=== PATIENT | male | born 2000 | race Hispanic/Latino ===

== ENCOUNTER 2020-01-22 16:13 | Emergency (ER) | payer SELFPAY ==
[2020-01-22] MEDS ORDERED: MORPHINE 4 MG/1 ML INJ IV ONE (16:38)
[2020-01-22] MEDS ORDERED: ONDANSETRON 4 MG/2 ML INJ IV ONE (16:38)
[2020-01-22] MEDS ORDERED: SODIUM CHLORIDE 0.9% 1000 ML 1,000 ML IV ONE (16:38)
--- NOTE | 2020-01-22 16:43 | Emergency Department Report ---
ED Upper Extremity Inj HPI - General Chief Complaint: Extremity Injury, Upper Stated Complaint: STEEL FELL ON HAND Time Seen by Provider: 01/22/20 16:37 Source: patient Mode of arrival: Ambulatory Limitations: No Limitations - History of Present Illness Initial Comments: Patient is 20 years old male with no significant past medical history. Patient presented to the ER complaining of left forearm, wrist and hand injury. 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 Patient stated that he is unable to move his hand since then. Bleeding controlled. Patient denied any other injuries. MD Complaint: Injury to:: left, forearm, wrist, hand -: Sudden Other Extremity Injury: Hand: Left, Wrist: Left, Forearm: Left Other Injuries: none Place: work Improves With: cold therapy Worsens With: movement of extremity Context: direct blow - Related Data Home Medications Medication Instructions Recorded Confirmed Last Taken No Known Home Medications [No 01/22/20 01/22/20 Unknown Reported Home Medications] Allergies Allergy/AdvReac Type Severity Reaction Status Date / Time Penicillins Allergy Unknown Verified 01/22/20 16:38 ED Review of Systems ROS: Stated complaint: STEEL FELL ON HAND Other details as noted in HPI Comment: All other systems reviewed and negative Constitutional: denies: chills, fever Respiratory: denies: cough, shortness of breath, SOB with exertion, wheezing Cardiovascular: denies: chest pain, palpitations Gastrointestinal: denies: abdominal pain Musculoskeletal: denies: back pain Neurological: denies: headache, weakness, numbness, paresthesias, confusion ED Past Medical Hx - Past Medical History Previous Medical History?: Yes Additional medical history: breaks, knee, jaw - Surgical History Past Surgical History?: No - Social History Smoking Status: Current Every Day Smoker - Medications Home Medications: Home Medications Medication Instructions Recorded Confirmed Last Taken Type No Known Home Medications [No 01/22/20 01/22/20 Unknown History Reported Home Medications] ED Physical Exam - General Limitations: No Limitations General appearance: alert, in distress (Moderate distress secondary to pain) - Head Head exam: Present: atraumatic, normocephalic, normal inspection - Eye Eye exam: Present: normal appearance, PERRL - ENT ENT exam: Present: normal exam, normal orophraynx, mucous membranes moist - Neck Neck exam: Present: normal inspection, full ROM. Absent: tenderness, meningismus, lymphadenopathy, thyromegaly - Respiratory Respiratory exam: Present: normal lung sounds bilaterally - Cardiovascular Cardiovascular Exam: Present: regular rate, normal rhythm, normal heart sounds - GI/Abdominal GI/Abdominal exam: Present: soft, normal bowel sounds. Absent: distended, tenderness, guarding, rebound, rigid, organomegaly, mass, bruit, pulsatile mass, hernia - Expanded Upper Extremity Exam Left General: Present: normal inspection. Absent: laceration, abrasion Shoulder Exam: Present: normal inspection, full ROM. Absent: tenderness, swelling, abrasion, laceration, ecchymosis Upper Arm exam: Present: normal inspection, full ROM. Absent: tenderness, swelling Elbow exam: Present: normal inspection, full ROM. Absent: tenderness, swelling, abrasion, laceration, ecchymosis, deformity Forearm Wrist exam: Present: tenderness, swelling, abrasion, ecchymosis. Absent: laceration Hand Wrist exam: Present: tenderness, swelling, abrasion, laceration (5 cm laceration to the dorsum of the left hand) - Neurological Exam Neurological exam: Present: alert, oriented X3, CN II-XII intact, normal gait - Psychiatric Psychiatric exam: Present: anxious - Skin Skin exam: Present: warm ED Course Vital Signs 01/22/20 01/22/20 16:37 16:40 Temperature 97.5 F L Respiratory 16 Rate ED Medical Decision Making - Lab Data Result diagrams: 01/22/20 16:59 - Radiology Data Radiology results: report reviewed - Medical Decision Making Patient is 20 years old male with no significant past medical history. Patient presented to the ER complaining of left forearm, wrist and hand injury. 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 Patient stated that he is unable to move his hand since then. Bleeding controlled. Patient denied any other injuries. Patient received morphine and Zofran for pain control. Patient also received a tetanus shot. X-ray showed no acute fracture or dislocation however it showed a radiopaque foreign body into the anterior side of the wrist just above the styloid process Patient is tender in that anatomical area. I did an extensive and a thorough exam on the left hand laceration and left hand function. Laceration showed multiple exposed extensor tendons. Patient is having difficulty extending his finger especially the distal and middle phalanx and digit 2-5 however there is no neurovascular compromise. Due to possible tendon laceration and possible left hand disability I decided to transfer the patient to a facility with a hand surgeon available. I discussed the patient with [place] [facility] and patient has been accepted by to be transferred to [place] emergency room for further management. Critical Care Time: Yes Critical care time in (mins) excluding proc time.: 30 Critical care attestation.: If time is entered above; I have spent that time in minutes in the direct care of this critically ill patient, excluding procedure time. ED Disposition Clinical Impression: Laceration of left hand, Extensor tendon laceration of hand with open wound Disposition: [id number] ANOTHER TYPE HLTHCARE Is pt being admited?: No Condition: Stable
[2020-01-22] MEDS ORDERED: TETANUS,DIPHTHERIA TOXOID ADULT 0.5 ML INJ IM ONE (17:00)
--- NOTE | 2020-01-22 17:11 | XRay Report ---
LEFT FOREARM 2 VIEWS INDICATION / CLINICAL INFORMATION: Steel beam crush injury. COMPARISON: None available. FINDINGS: BONES and JOINT(S): No acute fracture or subluxation. No significant arthritis. SOFT TISSUES: No significant abnormality. ADDITIONAL FINDINGS: None. IMPRESSION: 1. No acute findings. Signer Name: Edenilson Mcgrath MD Signed: 01/22/2020 5:07 PM Workstation Name: [id number]
--- NOTE | 2020-01-22 17:13 | XRay Report ---
LEFT HAND 2 VIEWS INDICATION / CLINICAL INFORMATION: Steel beam crush injury. Dorsal left hand laceration. COMPARISON: None available. FINDINGS: BONES and JOINT(S): No acute fracture or subluxation. No significant arthritis. SOFT TISSUES: A bandaged laceration is seen along the dorsum of the left hand and is not well evaluat ed. Punctate radiopaque foreign bodies are seen anteriorly and laterally along the wrist at the level of the radial styloid and scaphoid bone. ADDITIONAL FINDINGS: None. IMPRESSION: 1. Left hand soft tissue injury as above without an acute osseous abnormality. 2. Punctate radiopaque foreign bodies in the wrist as above. Signer Name: Edenilson Mcgrath MD Signed: 01/22/2020 5:08 PM Workstation Name: [id number]
[2020-01-22 17:32] LABS: Basophils % (Auto) 0.3 % (0.0-1.8); Eosinophils # (Auto) 0.3 K/mm3 (0.0-0.4); Eosinophils % (Auto) 3.9 % (0.0-4.3); Hematocrit 38.2 % (35.5-45.6); Hemoglobin 13.3 gm/dl (11.8-15.2); Lymphocytes # (Auto) 1.8 K/mm3 (1.2-5.4); Lymphocytes % (Auto) 22.8 % (13.4-35.0); Mean Corpuscular HGB Conc 35 % (32-34); Mean Corpuscular Volume 84 fl (84-94); Monocytes # (Auto) 0.8 K/mm3 (0.0-0.8); Monocytes % (Auto) 10.5 % (0.0-7.3); Platelet Count 253 K/mm3 (140-440); Red Blood Count 4.56 M/mm3 (3.65-5.03); Red Cell Distribution Width 14.2 % (13.2-15.2)
[2020-01-22] MEDS ORDERED: LIDOCAINE (2%) 20 MG/1 ML VIAL 20 ML MDV INFILTRATI ONE (17:35)
[2020-01-22] MEDS ORDERED: SODIUM CHLORIDE IRRI 500 ML 500 ML IR ONE (17:57)
[2020-01-22] MEDS ORDERED: SODIUM CHLORIDE 0.9% IRR 500 ML BOTTLE IR ONE (18:00)
[2020-01-22] MEDS ORDERED: CLINDAMYCIN 600 MG/50 mL 600 MG/50 ML BAG IV ONE (18:08)
[2020-01-22 18:10] LABS: INR 1.1 (0.87-1.13); Partial Thromboplastin Time 25.3 Sec. (24.2-36.6)
[2020-01-22 18:53] VITALS: BP 121/86
[2020-01-22 19:05] LABS: BUN/Creatinine Ratio 16; Blood Urea Nitrogen 16 mg/dL (9-20)
== END 2020-01-22 19:35 | disposition other institution (70) ==
LOC: ED 16:13
DX: S61.412A Laceration without foreign body of left hand, initial encounter (principal); F17.200 Nicotine dependence, unspecified, uncomplicated; Z88.0 Allergy status to penicillin; W20.8XXA Other cause of strike by thrown, projected or falling object, initial encounter; Y93.89 Activity, other specified; Y92.213 High school as the place of occurrence of the external cause; Y99.8 Other external cause status
CPT/HCPCS: 36415; 73090; 73120; 80048; 85025; 85610; 85730; 86850; 86900; 86901; 90471; 90714; 96365; 96375; 99285; J2270; J2405; J7030